=== PATIENT | female | born 1945 | race Caucasian/White ===

== ENCOUNTER 2020-01-01 11:47 | Observation (INO) | payer MEDICARE, MEDICAID, SELFPAY ==
[2020-01-01] VITALS (61 sets, daily range): BP systolic 53–106; BP diastolic 34–64; PULSE 64–160; RESP 15–40; O2SAT 67–99; BMI 41.1
--- NOTE | 2020-01-01 12:03 | PC.NURSE ---
EKG done at 1200 and shown to ER doctor
--- NOTE | 2020-01-01 12:05 | XRR_ITS ---
PROCEDURE INFORMATION: Exam: XR Chest, 1 View Exam date and time: 01/01/2020 1:06 PM Age: 74 years old Clinical indication: Other: AMS; Additional info: Sepsis TECHNIQUE: Imaging protocol: XR of the chest Views: 1 view. COMPARISON: No relevant prior studies available. FINDINGS: Lungs: Unremarkable. No consolidation. Pleural space: Unremarkable. No pleural effusion. No pneumothorax. Heart/Mediastinum: Unremarkable. No cardiomegaly. Bones/joints: Unremarkable. XR/XR chest 1V portable [id number] IMPRESSION: No acute findings.
--- NOTE | 2020-01-01 12:06 | ECG_ITS ---
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 Measurements Intervals [place] Rate: 86 P: -70 NH: 191 QRS: -70 QRSD: 129 T: 83 QT: 400 QTc: 480 Interpretive Statements ECTOPIC ATRIAL RHYTHM LEFT AXIS DEVIATION [QRS AXIS < -30] LEFT BUNDLE BRANCH BLOCK [120+ ms QRS DURATION, 80+ ms Q/S IN V1/V2, 85+ ms R IN I/aVL/V5/V6] No previous ECG available for comparison Electronically Signed On 01-02-2020 12:44:26 CDT by Zulay Jackson M.D. [email or web address]
--- NOTE | 2020-01-01 12:23 | W.ED.AMS ---
HPI - Altered Mental Status General: Chief Complaint: Shortness of Breath/Dyspnea Stated Complaint: AMS Time Seen by Provider: 01/01/20 12:05 History of Present Illness: HPI narrative: This patient is a 74-year-old detention resident. She was sent to the ED today with decreased mental status and difficulty breathing. Apparently over the past few days she has had some vomiting and a little bit of diarrhea. Her mental status has been decreasing. Her O2 sats have been okay. She has not had any documented fever. She has a history of dementia at baseline but normally is much more alert. Her son came into the room during the HPI and was quite distraught at seeing her otherwise she was. He had not seen her in a few days and was not aware that she had was having any sort of problem from the detention. No further history is provided. MD complaint: altered mental status, decreased responsiveness and other (Dyspnea) Onset (ago): day(s) (2 or 3) Timing confirmed by: caregiver Severity: severe Consistency of symptoms: Getting Worse Review of Systems General: Reports: 10 or more systems reviewed and unremarkable except in HPI and below, ROS unobtainable due to medical condition and ROS unobtainable due to mental status PFSH ED PFSH: Medical History (Updated 01/01/20 @ 18:34 by Leonel Richardson MD) Advanced dementia COPD (chronic obstructive pulmonary disease) Diabetes mellitus type 2 in obese Frequent UTI History of tobacco abuse Stroke Surgical History (Updated 01/01/20 @ 18:20 by Leonel Richardson MD) H/O hysterectomy for benign disease H/O lumpectomy Hx of cholecystectomy Family History (Updated 01/01/20 @ 18:21 by Leonel Richardson MD) Father Lung disease COPD Social History (Updated 01/01/20 @ 18:25 by Leonel Richardson MD) Smoking and tobacco status: former smoker Alcohol intake: never Substance/Drug Use: never Physical Exam Const: EXAM LIMITATIONS: altered mental status GENERAL APPEARANCE: in distress, lethargic and ill appearing NUTRITIONAL APPEARANCE: obese ORIENTATION/CONSCIOUSNESS: Yes patient obtunded and Yes lethargic HENMT: MOUTH: moist mucous membranes abnormal (Dry) Eye: CONJUNCTIVA: Yes other (Small amount of purulent drainage in the medial corner of the left eye) Neck/C-Spine: COMMON NORMALS: no JVD Resp: COMMON NORMALS: clear to auscultation bilaterally EFFORT & INSPECTION: Yes abnormal respiratory pattern Kussmaul breathing and Yes tachypneic AUSCULTATION: clear to auscultation bilaterally Cardio: COMMON NORMALS: no JVD, regular rate and regular rhythm RATE: regular rate and Other (Monitor is picking up tall T waves in so is reading 160 270 but the actual pulse and heart rate is only in the 80s.) RHYTHM: regular rhythm PERIPHERAL PULSES: radial pulses present OTHER: Both lower extremities are purple and mottled and cold. Not really able to palpate a pulse but there is sluggish capillary refill. GI: COMMON NORMALS: Soft to palpation and non-tender PALPATION: Yes Soft to palpation Extremity: GENERAL: Yes mottling and Yes pulses abnormal Neuro: NED COMA SCALE: document GCS findings [place] coma scale eye opening: To pressure Ned coma scale verbal response: Sounds [place] coma scale motor response: Localising Ned coma scale total score: 9 COMMON NORMALS: moves all extremities (Not making any effort to move in general. ) SENSORIUM/ORIENTATION: Yes lethargic Skin: GENERAL SKIN EXAM: mottling (Bilateral lower extremities) Course Reevaluation(s): Reevaluation #1: ABG was obtained with a pH of 7.868. PCO2 of 16 P O2 of 145. That was on 5 L nasal cannula. We have turned her down to 3 now. Hemoglobin was 13.2. Potassium was 7.3. I have ordered insulin, D50, calcium, bicarb. Labs are still pending. Reevaluation #2: Patient has severe metabolic acidosis, renal failure, heart failure, elevated troponin. I allowed all of her family members that were here to come back and we spoke with the Giorgio DARDEN who lives in [place] by phone. I advised the family of the patient's critical situation and discussed some of the interventions that we would have to do in order to make any attempt to give her a reasonable chance had a good outcome. This would include dialysis either temporarily or on a long-term basis and quite possibly mechanical ventilation. The patient does have a signed full code statement and her detention paperwork from just over a year ago. The family and the Giorgio DARDEN who is her son all agreed that they wanted to make her comfort care and DNR because they felt like that is what she would want in this situation. I think that is very appropriate and we will discontinue any aggressive treatments. We can continue managing her potassium from medical standpoint and continue fluids but I feel that is unlikely to reverse the course here. Time: 14:18 Vital Signs: Vital signs: Vital Signs Pulse Rate 118 H 01/01/20 18:34 Respiratory Rate 20 H 01/01/20 21:25 Blood Pressure 53/41 01/01/20 18:34 Pulse Oximetry 94 01/01/20 19:00 MDM - Altered Mental Status Lab Data: Labs: Lab Results 01/01/20 01/01/20 01/01/20 Range/Units 11:43 11:43 11:43 WBC 30.1 H (4.0-10.0) 10^3/ uL RBC 4.85 (4.1-5.3) 10^6/u L Hgb 12.7 (11.5-15.3) g/dL Hct 45.4 (37.0-47.0) % MCV 93.6 (81-99) fL MCH 26.2 L (28.0-34.0) pg MCHC 28.0 L (30.0-36.0) g/dL RDW 16.8 H (12.1-15.1) % Plt Count 480 H (130-400) 10^3/c mm MPV 11.3 H (7.4-10.4) fL Neut % (Auto) 90.8 % Lymph % (Auto) 2.1 % Elliott % (Auto) 4.8 % Eos % (Auto) 0.1 % Baso % (Auto) 0.2 % Neut # (Auto) 27.32 H (1.8-7.7) 10^3/u L Lymph # (Auto) 0.6 L (0.8-4.8) 10^3/u L Elliott # (Auto) 1.4 H (0.2-0.9) 10^3/u L Eos # (Auto) 0.0 (0.0-0.8) 10^3/u L Baso # (Auto) 0.1 (0.0-0.1) 10^3/u L Nucleated RBC % (a uto) 0 % Nucleated RBCs # 0.0 /100WBC PT 15.60 H (10.5-13.3) SECO NDS INR 1.20 (0.8-1.2) Specimen Type Sample Site ABG pH (7.35-7.45) ABG pCO2 (35-45) mmHg ABG pO2 (80.0-100.0) mmH g ABG HCO3 (22-26) mmol/L ABG Base Excess (-2.0-2.0) mmol/ L Raymundo Test Hematocrit (37-47) % O2 Delivery Device O2 Liters/Min % FiO2 % Voucher Examiner ID Sodium 137 (136-145) mmol/L Potassium 7.9 H* (3.5-5.1) mmol/L Chloride 92 L (98-107) mmol/L Carbon Dioxide 3 L* (22-29) mmol/L Anion Gap 49.9 H (5-19) BUN 111 H* (8-23) mg/dL Creatinine 10.8 H* (0.5-0.9) mg/dL GFR Calculation Not Reportable Glucose 167 H (65-115) mg/dL Calculated Osmolal ity 289 (285-295) mOsm/k g Lactate Calcium 9.7 (8.5-10.5) mg/dL Magnesium 2.2 (1.7-2.3) mg/dL Total Bilirubin 0.3 (0.15-1.2) mg/dL AST 30 (0-32) U/L ALT 16 (0-33) U/L Alkaline Phosphata se 88 (35-105) IU/L Troponin T Baselin e (0-10) ng/L Troponin T 120 Min knik (0-10) ng/L Delta Troponin T (0-10) ABS# NT-Pro-B Natriuret Pep 43924 H (0-450) pg/mL Total Protein 7.9 (6.6-8.7) g/dL Albumin 4.1 (3.5-5.2) g/dL Globulin 3.8 (1.3-4.6) g/dL Lipase 152 H (13-60) U/L Procalcitonin 1.07 H (0-0.5) ng/mL Serum Ketones (Negative) Blood Type Rho(D) Type Antibody Screen 01/01/20 01/01/20 01/01/20 Range/Units 11:43 11:43 12:35 WBC (4.0-10.0) 10^3/ uL RBC (4.1-5.3) 10^6/u L Hgb (11.5-15.3) g/dL Hct (37.0-47.0) % MCV (81-99) fL MCH (28.0-34.0) pg MCHC (30.0-36.0) g/dL RDW (12.1-15.1) % Plt Count (130-400) 10^3/c mm MPV (7.4-10.4) fL Neut % (Auto) % Lymph % (Auto) % Elliott % (Auto) % Eos % (Auto) % Baso % (Auto) % Neut # (Auto) (1.8-7.7) 10^3/u L Lymph # (Auto) (0.8-4.8) 10^3/u L Elliott # (Auto) (0.2-0.9) 10^3/u L Eos # (Auto) (0.0-0.8) 10^3/u L Baso # (Auto) (0.0-0.1) 10^3/u L Nucleated RBC % (a uto) % Nucleated RBCs # /100WBC PT (10.5-13.3) SECO NDS INR (0.8-1.2) Specimen Type Arterial Sample Site Brachial, left ABG pH 6.87 L* (7.35-7.45) ABG pCO2 16.3 L* (35-45) mmHg ABG pO2 145.0 H (80.0-100.0) mmH g ABG HCO3 3.0 L (22-26) mmol/L ABG Base Excess -29.3 L (-2.0-2.0) mmol/ L Raymundo Test N/a Hematocrit 40.5 (37-47) % O2 Delivery Device Nc O2 Liters/Min 5.0 % FiO2 40.0 % Voucher Examiner ID amh Sodium (136-145) mmol/L Potassium (3.5-5.1) mmol/L Chloride (98-107) mmol/L Carbon Dioxide (22-29) mmol/L Anion Gap (5-19) BUN (8-23) mg/dL Creatinine (0.5-0.9) mg/dL GFR Calculation Glucose (65-115) mg/dL Calculated Osmolal ity (285-295) mOsm/k g Lactate Calcium (8.5-10.5) mg/dL Magnesium (1.7-2.3) mg/dL Total Bilirubin (0.15-1.2) mg/dL AST (0-32) U/L ALT (0-33) U/L Alkaline Phosphata se (35-105) IU/L Troponin T Baselin e 644 H* (0-10) ng/L Troponin T 120 Min knik (0-10) ng/L Delta Troponin T (0-10) ABS# NT-Pro-B Natriuret Pep (0-450) pg/mL Total Protein (6.6-8.7) g/dL Albumin (3.5-5.2) g/dL Globulin (1.3-4.6) g/dL Lipase (13-60) U/L Procalcitonin (0-0.5) ng/mL Serum Ketones Negative (Negative) Blood Type Rho(D) Type Antibody Screen 01/01/20 01/01/20 01/01/20 Range/Units 12:35 12:35 13:00 WBC (4.0-10.0) 10^3/ uL RBC (4.1-5.3) 10^6/u L Hgb (11.5-15.3) g/dL Hct (37.0-47.0) % MCV (81-99) fL MCH (28.0-34.0) pg MCHC (30.0-36.0) g/dL RDW (12.1-15.1) % Plt Count (130-400) 10^3/c mm MPV (7.4-10.4) fL Neut % (Auto) % Lymph % (Auto) % Elliott % (Auto) % Eos % (Auto) % Baso % (Auto) % Neut # (Auto) (1.8-7.7) 10^3/u L Lymph # (Auto) (0.8-4.8) 10^3/u L Elliott # (Auto) (0.2-0.9) 10^3/u L Eos # (Auto) (0.0-0.8) 10^3/u L Baso # (Auto) (0.0-0.1) 10^3/u L Nucleated RBC % (a uto) % Nucleated RBCs # /100WBC PT (10.5-13.3) SECO NDS INR (0.8-1.2) Specimen Type Sample Site ABG pH (7.35-7.45) ABG pCO2 (35-45) mmHg ABG pO2 (80.0-100.0) mmH g ABG HCO3 (22-26) mmol/L ABG Base Excess (-2.0-2.0) mmol/ L Raymundo Test Hematocrit (37-47) % O2 Delivery Device O2 Liters/Min % FiO2 % Voucher Examiner ID Sodium (136-145) mmol/L Potassium (3.5-5.1) mmol/L Chloride (98-107) mmol/L Carbon Dioxide (22-29) mmol/L Anion Gap (5-19) BUN (8-23) mg/dL Creatinine (0.5-0.9) mg/dL GFR Calculation Glucose (65-115) mg/dL Calculated Osmolal ity (285-295) mOsm/k g Lactate Cancelled 12.7 H* Calcium (8.5-10.5) mg/dL Magnesium (1.7-2.3) mg/dL Total Bilirubin (0.15-1.2) mg/dL AST (0-32) U/L ALT (0-33) U/L Alkaline Phosphata se (35-105) IU/L Troponin T Baselin e (0-10) ng/L Troponin T 120 Min knik (0-10) ng/L Delta Troponin T (0-10) ABS# NT-Pro-B Natriuret Pep (0-450) pg/mL Total Protein (6.6-8.7) g/dL Albumin (3.5-5.2) g/dL Globulin (1.3-4.6) g/dL Lipase (13-60) U/L Procalcitonin (0-0.5) ng/mL Serum Ketones (Negative) Blood Type O Negative Rho(D) Type Negative Antibody Screen Negative 01/01/20 01/01/20 Range/Units 13:52 13:52 WBC (4.0-10.0) 10^3/ uL RBC (4.1-5.3) 10^6/u L Hgb (11.5-15.3) g/dL Hct (37.0-47.0) % MCV (81-99) fL MCH (28.0-34.0) pg MCHC (30.0-36.0) g/dL RDW (12.1-15.1) % Plt Count (130-400) 10^3/c mm MPV (7.4-10.4) fL Neut % (Auto) % Lymph % (Auto) % Elliott % (Auto) % Eos % (Auto) % Baso % (Auto) % Neut # (Auto) (1.8-7.7) 10^3/u L Lymph # (Auto) (0.8-4.8) 10^3/u L Elliott # (Auto) (0.2-0.9) 10^3/u L Eos # (Auto) (0.0-0.8) 10^3/u L Baso # (Auto) (0.0-0.1) 10^3/u L Nucleated RBC % (a uto) % Nucleated RBCs # /100WBC PT (10.5-13.3) SECO NDS INR (0.8-1.2) Specimen Type Sample Site ABG pH (7.35-7.45) ABG pCO2 (35-45) mmHg ABG pO2 (80.0-100.0) mmH g ABG HCO3 (22-26) mmol/L ABG Base Excess (-2.0-2.0) mmol/ L Raymundo Test Hematocrit (37-47) % O2 Delivery Device O2 Liters/Min % FiO2 % Voucher Examiner ID Sodium 135 L (136-145) mmol/L Potassium 5.5 H (3.5-5.1) mmol/L Chloride 100 (98-107) mmol/L Carbon Dioxide 2 L* (22-29) mmol/L Anion Gap 38.5 H (5-19) BUN 54 H (8-23) mg/dL Creatinine 4.5 H (0.5-0.9) mg/dL GFR Calculation Not Reportable Glucose 132 H (65-115) mg/dL Calculated Osmolal ity 280 L (285-295) mOsm/k g Lactate Calcium 7.7 L (8.5-10.5) mg/dL Magnesium (1.7-2.3) mg/dL Total Bilirubin (0.15-1.2) mg/dL AST (0-32) U/L ALT (0-33) U/L Alkaline Phosphata se (35-105) IU/L Troponin T Baselin e (0-10) ng/L Troponin T 120 Min knik 369.4 H (0-10) ng/L Delta Troponin T -274.6 L (0-10) ABS# NT-Pro-B Natriuret Pep (0-450) pg/mL Total Protein (6.6-8.7) g/dL Albumin (3.5-5.2) g/dL Globulin (1.3-4.6) g/dL Lipase (13-60) U/L Procalcitonin (0-0.5) ng/mL Serum Ketones (Negative) Blood Type Rho(D) Type Antibody Screen Critical Care Time Critical Care Time: Critical Care Time: Yes Total Critical Care Time: 45 Attestation: I provided 45 minutes of critical care time to this patient prior to her family's decision to make her comfort care. This was excluding procedures and other patients. Requirements for re-evaluations, multiple medications critical to reverse her hyperkalemia, sepsis, antibiotics were given. I spent a significant portion of the time consulting with family members regarding how aggressive to be with her care. Discharge Plan Discharge Patient Disposition: Admitted As Inpatient Admit Provider: Leonel Richardson Discharge Date/Time: 01/01/20 18:37 Coding Level of Care Code ED Copy Reader for Urig Fwd Exam Comprehensive
[2020-01-01 12:35] LABS: Ketone (Acetest) Serum Negative (Negative)
[2020-01-01 12:47] LABS: Arterial Blood Gas Hematocrit 40.5 % (37-47); Base Excess ABG -29.3 mmol/L (-2.0-2.0); Blood Gas Operator Identificat amh; Blood Gas Sample Site Brachial, left; Blood Gas Sample Type Arterial; Oxygen Device NC
[2020-01-01 12:48] LABS: ABG PCO2 16.3 mmHg (35-45); ABG PH Result 6.87 (7.35-7.45)
[2020-01-01 12:53] LABS: Alanine Aminotransferase 16 U/L (0-33); Albumin Level 4.1 g/dL (3.5-5.2); Alkaline Phosphatase 88 IU/L (35-105); Anion Gap 49.9 (5-19); Aspartate Amino Transferase 30 U/L (0-32); Calcium 9.7 mg/dL (8.5-10.5); Chloride 92 mmol/L (98-107); Globulin 3.8 g/dL (1.3-4.6); Glucose 167 mg/dL (65-115); Lipase 152 U/L (13-60); Magnesium 2.2 mg/dL (1.7-2.3); NT Pro B Type Natriuretic Pept 22946 pg/mL (0-450); Osmolality Calculated 289 mOsm/kg (285-295); Sodium 137 mmol/L (136-145); Total Bilirubin 0.3 mg/dL (0.15-1.2); Total Protein 7.9 g/dL (6.6-8.7)
[2020-01-01 13:06] LABS: Basophils # 0.1 10^3/uL (0.0-0.1); Basophils % 0.2 %; Eosinophils % 0.1 %; Hematocrit 45.4 % (37.0-47.0); Hemoglobin 12.7 g/dL (11.5-15.3); Lymphocytes # 0.6 10^3/uL (0.8-4.8); Lymphocytes % 2.1 %; Mean Corpuscular Hemoglobin 26.2 pg (28.0-34.0); Mean Corpuscular Volume 93.6 fL (81-99); Mean Platelet Volume 11.3 fL (7.4-10.4); Monocytes # 1.4 10^3/uL (0.2-0.9); Monocytes % 4.8 %; Neutrophils # 27.32 10^3/uL (1.8-7.7); Neutrophils % 90.8 %; Nucleated Red Blood Cells % 0 %; Platelet Count 480 10^3/cmm (130-400); Red Blood Count 4.85 10^6/uL (4.1-5.3); Red Cell Distribution Width 16.8 % (12.1-15.1); White Blood Count 30.1 10^3/uL (4.0-10.0)
[2020-01-01 13:31] LABS: Carbon Dioxide 3 mmol/L (22-29); Potassium 7.9 mmol/L (3.5-5.1)
[2020-01-01 13:32] LABS: Blood Urea Nitrogen 111 mg/dL (8-23)
[2020-01-01 13:33] LABS: Troponin(5th) Baseline 644 ng/L (0-10)
[2020-01-01 13:34] LABS: Lactate (Lactic Acid level) 12.7 mmol/L (0.5-2.2)
[2020-01-01] MEDS: piperacillin-tazobactam 3.375 GM in sodium chloride 0.9% (plus) 50 ML IV (13:42)
[2020-01-01] MEDS: dextrose 50% syringe 50 mL IVP (13:43)
[2020-01-01] MEDS: calcium chloride 10% Syr 10 mL 1 GM IVP (13:43)
[2020-01-01] MEDS: sodium bicarbonate 8.4% 1 mEq/mL 50mL Syr 100 MEQ IVP (13:43)
[2020-01-01] MEDS: insulin regular-human 100 units/1 mL 10 UNIT IVP (13:45)
[2020-01-01 13:59] LABS: Procalcitonin 1.07 ng/mL (0-0.5)
[2020-01-01] MEDS: ondansetron 2 mg/ML SDV 2 mL 4 MG IVP (14:31)
[2020-01-01] MEDS: morphine 4 mg/mL SDV 1 mL IVP ×2 (14:32→19:00)
[2020-01-01 14:34] LABS: Anion Gap 38.5 (5-19); Blood Urea Nitrogen 54 mg/dL (8-23); Calcium 7.7 mg/dL (8.5-10.5); Chloride 100 mmol/L (98-107); Glucose 132 mg/dL (65-115); Osmolality Calculated 280 mOsm/kg (285-295); Potassium 5.5 mmol/L (3.5-5.1); Sodium 135 mmol/L (136-145)
[2020-01-01 15:01] LABS: Carbon Dioxide 2 mmol/L (22-29); Troponin 5 2HR 369.4 ng/L (0-10)
--- NOTE | 2020-01-01 18:11 | PM.HP ---
Providers/Chief Complaint Primary Care Provider: Guido Torres Chief Complaint: AMS History of Present Illness Susy Mccarthy is a 74 year old female, resident of nursing facility was brought to emerge department because of altered mental status that happened rather quickly over the last day or 2. Patient was in severe lactic acidosis and acute kidney injury as well has significantly elevated troponin. Patient was given 3 L of IV fluids and still remained anuric. After several hours of treatment in ER patient's family decided to proceed with comfort measures and let nature take its course. Dr. Perez called nursing facility and they were okay to get patient back on comfort measures but they would allow only 1 visitor. Since patient has multiple family members at bedside, at least 10 during my evaluation in ER and more were coming patient will be admitted and kept comfortable at our facility. I had discussion with patient's son, daughter, sister and multiple other family members and they were all in agreement to proceed with comfort measures. They all did not want to have any further evaluation or treatment. I did not discuss with patient son that lives in [place] who is DPOA as Dr. Perez already had conversation with him over the phone. I also would like to mention that patient has advanced dementia and could not recognize most of the family members including son for quite some time. She would occasionally not recognize her daughter as well. During my evaluation patient is comfortable and does not appear in pain or distress. Review of Systems Narrative: Unable to obtain due to patient's mental status. Medications/Allergies Home Medications Medication Instructions Recorded Confirmed Last Taken Type acetaminophen 1,000 mg PO Q6H PRN 01/01/20 01/01/20 Unknown History aspirin 81 mg PO DAILY 01/01/20 01/01/20 01/01/20 History atorvastatin 10 mg PO BEDTIME 01/01/20 01/01/20 12/31/19 History bisacodyl 10 mg TN DAILY PRN 01/01/20 01/01/20 Unknown History dextromethorphan-guaifenesin 10 ml PO Q6H PRN 01/01/20 01/01/20 Unknown History [Juliana-Tussin DM] donepezil 23 mg PO DAILY 01/01/20 01/01/20 12/31/19 History ferrous sulfate 325 mg PO BID 01/01/20 01/01/20 01/01/20 History isosorbide mononitrate 30 mg PO DAILY 01/01/20 01/01/20 01/01/20 History lisinopril 20 mg PO DAILY 01/01/20 01/01/20 01/01/20 History magnesium hydroxide [Milk of 30 ml PO DAILY PRN 01/01/20 01/01/20 Unknown History Magnesia] metformin 1,000 mg PO BID 01/01/20 01/01/20 01/01/20 History nitroglycerin [Nitrostat] 0.4 mg SUBLINGUAL Q5M PRN 01/01/20 01/01/20 Unknown History ondansetron HCl [Zofran] 4 mg PO Q4H PRN 01/01/20 01/01/20 Unknown History pantoprazole 40 mg PO DAILY 01/01/20 01/01/20 01/01/20 History sitagliptin [Januvia] 100 mg PO DAILY 01/01/20 01/01/20 01/01/20 History sodium phosphates [Enema] 118 ml TN DAILY PRN 01/01/20 01/01/20 Unknown History tramadol 50 mg PO Q6H PRN 01/01/20 01/01/20 Unknown History Allergies Allergy/AdvReac Type Severity Reaction Status Date / Time No Known Allergies Allergy Verified 01/01/20 11:57 PFSH Acute PFSH: Medical History (Updated 01/01/20 @ 18:34 by Leonel Richardson MD) Advanced dementia COPD (chronic obstructive pulmonary disease) Diabetes mellitus type 2 in obese Frequent UTI History of tobacco abuse Stroke Surgical History (Updated 01/01/20 @ 18:20 by Leonel Richardson MD) H/O hysterectomy for benign disease H/O lumpectomy Hx of cholecystectomy Family History (Updated 01/01/20 @ 18:21 by Leonel Richardson MD) Father Lung disease COPD Social History (Updated 01/01/20 @ 18:25 by Leonel Richardson MD) Smoking and tobacco status: former smoker Alcohol intake: never Substance/Drug Use: never Vitals/I&O/Wt Last Vital Signs Pulse 87 01/01/20 18:07 Resp 18 01/01/20 18:07 BP 75/37 01/01/20 16:30 Pulse Ox 90 01/01/20 18:07 01/01/20 01/01/20 01/01/20 06:59 14:59 22:59 Intake Total 3315.86 / 3315.86 Balance 3315.86 / 3315.86 Weight last 48 hrs Weight 108.862 kg Physical Exam Narrative: EXAM NARRATIVE: Examination and history was limited as multiple family members were at bedside and spending time together therefore I did not want to take much of their time. Urinary Catheter Management^: [place]: Cath Placed During This Visit: yes Reason for Continuing Indwelling Catheter: Accurate Measurement of Urinary Output in Critically Ill Patients Urinary Catheter Date of Insertion: 01/01/20 Urinary Catheter Time of Insertion: 13:50 Data : 01/01/20 11:43 01/01/20 13:52 A&P Assessment and plan (1) History of tobacco abuse: Status: Acute (2) COPD (chronic obstructive pulmonary disease): Status: Acute (3) Advanced dementia: Status: Acute (4) Stroke: Status: Acute (5) Diabetes mellitus type 2 in obese: Status: Acute (6) Lactic acidosis: Severe acidosis including lactic acidosis. Status: Acute (7) Non-ST elevation NV (NSTEMI): Patient is at high risk for NV given previous history of smoking, stroke and diagnosis of diabetes. EKG with left bundle branch block. Status: Acute (8) Severe sepsis with acute organ dysfunction: Status: Acute (9) Septic shock: Concurrent cardiogenic and hypovolemic shock also suspected Status: Acute (10) Suspected UTI: Status: Acute (11) Dehydration with hyponatremia: Status: Acute (12) Hyperkalemia: Status: Acute (13) Acute heart failure: Status: Acute (14) Acute kidney injury with acute tubular necrosis: Status: Acute Additional A&P Information Per family wish including son, NHUNG with who Dr. Perez discussed over the phone we will proceed with comfort measures and allow natural . Attestations Medical Necessity Statement*: Patient is admitted for comfort measures. I expect patient will require less than two midnights. Time Spent in Patient Care: Greater than 35 minutes Coding Level of Care Code Acute [facility] Owner for Urig Fwd Diagnoses History of tobacco abuse Z87.891 COPD (chronic obstructive pulmonary disease) J44.9 Advanced dementia F03.90 Stroke I63.9 Diabetes mellitus type 2 in obese E11.69; E66.9 Lactic acidosis E87.2 Non-ST elevation NV (NSTEMI) I21.4 Severe sepsis with acute organ dysfunction A41.9; R65.20 Septic shock A41.9; R65.21 Suspected UTI R39.89 Dehydration with hyponatremia E86.0; E87.1 Hyperkalemia E87.5 Acute heart failure I50.9 Acute kidney injury with acute tubular necrosis N17.0
[2020-01-01] MEDS: morphine 4 mg/mL SDV 1 mL 2 MG IVP (21:25)
--- NOTE | 2020-01-01 21:31 | PM.EVENT ---
Event Note Event Note: Family at the bedside along the DPGiorgio CRAIN is Keith who along with the family is in agreement to start comfort care.
--- NOTE | 2020-01-02 01:30 | PC.NURSE ---
2 RINGS WERE REMOVED FROM PT FINGER AND PT GOWN WAS REMOVED AND SENT WITH PT.
--- NOTE | 2020-01-02 01:50 | PC.NURSE ---
Addendum entered by Devika Bacon RN 01/02/20 01:53: CHARGE NURSE, INSPECTING ENGINEER AND DOCTOR WERE NOTIFIED BY 0045. Original Note: PT AT 0037 ON 01/02/20, FAMILY AT BEDSIDE. THIS NURSE AND CHARGE NURSE VERIFIED EXPIRATION. CHARGE NURSE, INSPECTING ENGINEER, AND DOCTOR WERE NOTIFIED.
--- NOTE | 2020-01-02 18:27 | PM.DDS ---
Discharge Providers DDS Date of Admission: 01/01/20 18:08 Date Summary Completed: 01/02/20 Attending Provider at Admission: Leonel Richardson MD Time of : 00:37 Attending Provider at Discharge: Leonel Richardson MD Primary Care Provider: Guido JONES Diagnoses Hospital Diagnoses (1) History of tobacco abuse: (2) COPD (chronic obstructive pulmonary disease): (3) Advanced dementia: (4) Stroke: (5) Diabetes mellitus type 2 in obese: (6) Lactic acidosis: (7) Non-ST elevation AZ (NSTEMI): (8) Severe sepsis with acute organ dysfunction: (9) Septic shock: (10) Suspected UTI: (11) Dehydration with hyponatremia: (12) Hyperkalemia: (13) Acute heart failure: Problem details: Highly suspected acute systolic heart failure due to AZ. (14) Acute kidney injury with acute tubular necrosis: Reason for Visit Reason for Visit: AMS Summary Date and Time of : Date of : 01/02/20 Time of : 00:37 Summary: Summary: Ms. Mccarthy, resident of nursing facility presented with altered mental status. She was noted to be critically ill with evidence of non-ST elevation AZ and septic shock. Cardiac and hypovolemic shock appeared also to coexist. Urinary tract infection was suspected. After several hours of treatment in the emergency department patient's family opted to proceed with comfort care therefore hospitalist team was contacted. Patient was admitted on comfort measures and early in the morning at 00:37. Multiple family members were at bedside. No autopsy was requested. Because of this felt to be overwhelming sepsis and septic shock along with non-ST elevation AZ and heart failure. Additional Data: Advance directives?: No Discharge Plan Discharge Patient Disposition: Discharge Date/Time: 01/02/20 02:00 DS Attestations Time Spent in /Discharge Care*: less than 30 min Quality - AMI: AMI present?: Yes Quality - Stroke: CVA present?: No Quality - VTE: VTE present?: No Coding Level of Care Code Acute Global Account Manager for Chg Fwd Diagnoses History of tobacco abuse Z87.891 COPD (chronic obstructive pulmonary disease) J44.9 Advanced dementia F03.90 Stroke I63.9 Diabetes mellitus type 2 in obese E11.69; E66.9 Lactic acidosis E87.2 Non-ST elevation AZ (NSTEMI) I21.4 Severe sepsis with acute organ dysfunction A41.9; R65.20 Septic shock A41.9; R65.21 Suspected UTI R39.89 Dehydration with hyponatremia E86.0; E87.1 Hyperkalemia E87.5 Acute heart failure I50.9 Acute kidney injury with acute tubular necrosis N17.0
== END 2020-01-02 02:00 | disposition expired ==
LOC: ER 12:16 → MEDSURG 18:16
PROVIDERS: Admitting Provider Internal Medicine; Emergency Provider Emergency Medicine; PCP Physician Assistant Medical; Visit Provider Internal Medicine
DX: R65.21 Severe sepsis with septic shock (principal); R41.82 Altered mental status, unspecified; F03.90 Unspecified dementia, unspecified severity, without behavioral disturbance, psychotic disturbance, mood disturbance, and anxiety; Z79.82 Long term (current) use of aspirin; Z79.84 Long term (current) use of oral hypoglycemic drugs; J44.9 Chronic obstructive pulmonary disease, unspecified; E11.69 Type 2 diabetes mellitus with other specified complication; E66.9 Obesity, unspecified; Z68.41 Body mass index [BMI] 40.0-44.9, adult; Z87.891 Personal history of nicotine dependence; Z86.73 Personal history of transient ischemic attack (TIA), and cerebral infarction without residual deficits; E87.2 Acidosis; I25.2 Old myocardial infarction; R39.89 Other symptoms and signs involving the genitourinary system; E86.0 Dehydration; E87.1 Hypo-osmolality and hyponatremia; E87.5 Hyperkalemia; I50.9 Heart failure, unspecified; N17.0 Acute kidney failure with tubular necrosis
CPT/HCPCS: 12345; 36415; 36600; 51702; 71045; 80048; 80053; 82009; 82803; 83605; 83690; 83735; 83880; 84145; 84484; 85025; 85610; 86850; 86900; 93005; 96365; 96367; 96375; 96376; 99284; 99285; G0378; J1815; J2270; J2405; J2543; J3490